=== PATIENT | male | born 2000 | race Two or more races ===

== ENCOUNTER 2023-08-19 19:40 | Emergency (ER) | payer OTHER ==
[~2023-08-19] VITALS: Ht 160 cm; Wt 64.0 kg
[2023-08-19] MEDS ORDERED: LIDOCAINE 1% 10 ML VIAL IM ONE (23:00)
[2023-08-19] MEDS ORDERED: BUPIVACAINE HCL/PF 0.25% 10 ML VIAL IM ONE (23:00)
[2023-08-20] MEDS ORDERED: CEPHALEXIN MONOHYDRATE 500 MG CAPSULE PO ONE (00:30)
[2023-08-20] MEDS ORDERED: PERTUSS(ACELL),DIPH,TET VAC/PF 0.5 ML SYRINGE IM. ONE (00:30)
[2023-08-20] MEDS ORDERED: CEPH-558 PO (00:40)
[2023-08-20] MEDS ORDERED: TRAM-559 PO (00:40)
[2023-08-20] MEDS ORDERED: TraMADol HCL 50 MG TABLET PO ONE (00:45)
[2023-08-20 00:51] VITALS: BP 129/74; PULSE 70; RESP 16; TEMP 98.3
== END 2023-08-20 00:59 | disposition home or self-care (01) ==
LOC: EMS 19:42
DX: S61.310A Laceration without foreign body of right index finger with damage to nail, initial encounter (principal); F12.90 Cannabis use, unspecified, uncomplicated; X58.XXXA Exposure to other specified factors, initial encounter; Y93.89 Activity, other specified; Y92.89 Other specified places as the place of occurrence of the external cause; Y99.8 Other external cause status
CPT/HCPCS: 99283; 73130; 12001; 90715; 90471; J3490 ×2